=== PATIENT | female | born 1950 | race Caucasian/White ===

== ENCOUNTER 2017-10-15 18:22 | Emergency (ER) | payer OTHER ==
[2017-10-15 19:15] VITALS: RESP 18
[2017-10-15] MEDS ORDERED: LIDOCAINE 1% INJ 10MG/ML (20 ML MDV) SQ ONE (19:55)
--- NOTE | 2017-10-15 20:33 | ED ---
Skin/Abscess/FB HPI - General Chief complaint: Skin/Abscess/Foreign Body Stated complaint: Abcess on Ear Time Seen by Provider: 10/15/17 19:26 Source: patient Mode of arrival: ambulatory Limitations: no limitations - History of Present Illness Initial comments: 66-year-old female patient presents the emergency department for evaluation of abscess to the left posterior earlobe. Patient states that she did have this drained approximately one week ago and they got a "cottage cheese" like material out of it. Patient states over the last 2 days the area has started to swell again has become red and hot. Patient denies any drainage from the area. She denies any fevers or chills. Patient states that before having it drained a week ago the lesion had been there for a couple of years. Patient denies any recent rash, fever, chills, shortness breath, chest pain, abdominal pain, nausea, vomiting, diarrhea, constipation, back pain, numbness, tingling, dizziness, weakness, hematuria, dysuria, urinary urgency, urinary frequency, headache, visual changes, or any other complaints. - Related Data Previous Rx's Medication Instructions Recorded Sulfamethoxazole/Trimethoprim 1 each PO BID #20 tablet 10/15/17 [Bactrim DS 800-160 mg] Allergies Allergy/AdvReac Type Severity Reaction Status Date / Time naproxen [From Naprosyn] Allergy Nausea & Verified 10/15/17 19:16 Vomiting Review of Systems ROS Statement: Those systems with pertinent positive or pertinent negative responses have been documented in the HPI. ROS Other: All systems not noted in ROS Statement are negative. Past Medical History Past Medical History: No Reported History History of Any Multi-Drug Resistant Organisms: None Reported Past Surgical History: Orthopedic Surgery Past Psychological History: Anxiety Smoking Status: Current every day smoker Past Alcohol Use History: Daily Past Drug Use History: None Reported General Exam Limitations: no limitations General appearance: alert, in no apparent distress, other (This is a well- developed, well-nourished adult female patient in no acute distress. Vital signs upon presentation are temperature 98.5F, pulse 72, respirations 18, blood pressure 154/86, pulse ox 97% on room air.) Eye exam: Present: normal appearance, PERRL, EOMI. Absent: scleral icterus, conjunctival injection, periorbital swelling ENT exam: Present: normal oropharynx, mucous membranes moist, other (Patient has 2 cm abscess to the left posterior ear lobe. Erythematous, hot to touch. No surrounding cellulitis. No involvement of the ear canal, or anterior ear lobe.) . Absent: normal exam Neck exam: Present: normal inspection. Absent: tenderness, meningismus, lymphadenopathy Respiratory exam: Present: normal lung sounds bilaterally. Absent: respiratory distress, wheezes, rales, rhonchi, stridor Cardiovascular Exam: Present: regular rate, normal rhythm, normal heart sounds. Absent: systolic murmur, diastolic murmur, rubs, gallop, clicks GI/Abdominal exam: Present: soft, normal bowel sounds. Absent: distended, tenderness, guarding, rebound, rigid Neurological exam: Present: alert, oriented X3, CN II-XII intact Psychiatric exam: Present: normal affect, normal mood Skin exam: Present: warm, dry, intact, normal color. Absent: rash Course Vital Signs 10/15/17 10/15/17 19:12 20:40 Temperature 98.5 F 98.3 F Pulse Rate 72 70 Respiratory 18 18 Rate Blood Pressure 154/86 146/78 O2 Sat by Pulse 97 98 Oximetry Procedures - Incision & Drainage Consent Obtained: verbal consent Time Out Performed?: Yes Indication: abscess Site: other (Ear - left posterior ear lobe.) Size (cm): 2 Anesthetic Used: lidocaine 1% Amount (mLs): 1 I&D Cleaning Method: Chloroprep Sterile Field Used?: No Needle Aspiration Performed?: Yes (3ml) I&D Drainage Obtained: Pus, Blood Culture Obtained?: Yes Patient Tolerated Procedure: well, no complications Medical Decision Making - Medical Decision Making 66-year-old female patient presented to the emergency department today for evaluation of abscess to the left posterior earlobe. Physical examination did reveal a 2 cm area of abscess with fluctuance. I did perform needle aspiration did withdraw approximately 3 mL of purulent bloody drainage. This was sent for culture. Patient had been taking Keflex for the last several days, I did start Bactrim and recommended she complete the Keflex dosing. She is instructed to follow-up with her primary care physician for recheck in 1-2 days. Return parameters were discussed in detail. She verbalizes understanding and agrees with this plan. Disposition Clinical Impression: Abscess, earlobe Disposition: HOME SELF-CARE Condition: Good Instructions: Abscess Incision and Drainage (ED), Abscess (ED) Additional Instructions: Apply warm compresses to the ear. Take Tylenol motion for pain control. Follow -up for recheck with your primary care physician in 1 to 2 days. Complete antibiotic prescription in full. Return here immediately for any new, worsening , or concerning symptoms. Prescriptions: Sulfamethoxazole/Trimethoprim [Bactrim DS 800-160 mg] 1 each PO BID #20 tablet Is patient prescribed a controlled substance at d/c from ED?: No Referrals: None,Stated [Primary Care Provider] - 1-2 days Time of Disposition: 20:33
[2017-10-15 20:45] VITALS: BP 146/78; PULSE 70; TEMP 98.3
== END 2017-10-15 20:54 | disposition home or self-care (01) ==
LOC: EC 18:22
DX: H60.02 Abscess of left external ear (principal); F17.200 Nicotine dependence, unspecified, uncomplicated; Z88.6 Allergy status to analgesic agent
CPT/HCPCS: 87070; 87205; 99283; 69000; J2001

== ENCOUNTER 2017-11-15 21:03 | Emergency (ER) | payer SELFPAY ==
[2017-11-15 21:23] VITALS: BP 149/87; PULSE 89; RESP 18; TEMP 98.4
[2017-11-15] MEDS ORDERED: methylPREDNISolone SOD SUCCI 125 MG/2 ML VIAL IM ONE (23:04)
[2017-11-15] MEDS ORDERED: FAMOTIDINE 20 MG TAB PO STA (23:04)
--- NOTE | 2017-11-15 23:08 | ED ---
Skin/Abscess/FB HPI - General Chief complaint: Skin/Abscess/Foreign Body Stated complaint: Insect bite/Arm Time Seen by Provider: 11/15/17 22:36 Source: patient Mode of arrival: ambulatory Limitations: no limitations - History of Present Illness Initial comments: 67-year-old female patient presents to the emergency department today for evaluation of insect bite to the left upper arm. Patient states she woke this morning with a swollen, reddened, circular area to the left upper arm. The patient states that the area was very itchy and had burning pain. Patient states that the redness spread down the arm throughout the day today. States that she did take Benadryl earlier but it didn't relieve the symptoms. Patient denies any fevers or chills with this. Denies any difficulty or painful range of motion to the left shoulder or the left elbow. Patient denies any recent shortness breath, chest pain, abdominal pain, nausea, vomiting, diarrhea, constipation, back pain, numbness, tingling, dizziness, weakness, hematuria, dysuria, urinary urgency, urinary frequency, headache, visual changes, or any other complaints. - Related Data Home Medications Medication Instructions Recorded Confirmed Multivit-Min/Iron/Folic/Lutein 1 tab PO DAILY 11/15/17 11/15/17 [Centrum Silver Women Tablet] diphenhydrAMINE [Benadryl] 50 mg PO DAILY PRN 11/15/17 11/15/17 Previous Rx's Medication Instructions Recorded Cephalexin [Keflex] 500 mg PO Q6H #40 cap 11/15/17 Famotidine [Pepcid] 20 mg PO DAILY #3 tablet 11/15/17 predniSONE 50 mg PO DAILY #3 tablet 11/15/17 Allergies Allergy/AdvReac Type Severity Reaction Status Date / Time bee pollen Allergy Rash/Hives Verified 11/15/17 22:46 codeine Allergy Nausea & Verified 11/15/17 22:46 Vomiting naproxen [From Naprosyn] Allergy Nausea & Verified 11/15/17 22:46 Vomiting Review of Systems ROS Statement: Those systems with pertinent positive or pertinent negative responses have been documented in the HPI. ROS Other: All systems not noted in ROS Statement are negative. Past Medical History Past Medical History: No Reported History History of Any Multi-Drug Resistant Organisms: None Reported Past Surgical History: Orthopedic Surgery Past Psychological History: Anxiety Smoking Status: Current every day smoker Past Alcohol Use History: Daily Past Drug Use History: None Reported General Exam Limitations: no limitations General appearance: alert, in no apparent distress, other (Is a well-developed, well-nourished adult female patient in no acute distress. Vital signs upon presentation are temperature 98.4F, pulse 89, respirations 18, blood pressure 149/87, pulse ox 100% on room air.) Eye exam: Present: normal appearance, PERRL, EOMI. Absent: scleral icterus, conjunctival injection, periorbital swelling ENT exam: Present: normal exam, normal oropharynx, mucous membranes moist Respiratory exam: Present: normal lung sounds bilaterally. Absent: respiratory distress, wheezes, rales, rhonchi, stridor Cardiovascular Exam: Present: regular rate, normal rhythm, normal heart sounds. Absent: systolic murmur, diastolic murmur, rubs, gallop, clicks Extremities exam: Present: full ROM, other (Patient has erythematous wheal noted to the left upper arm, there is surrounding swelling and erythema. No evidence of abscess. ). Absent: normal inspection, tenderness Neurological exam: Present: alert, oriented X3, CN II-XII intact Psychiatric exam: Present: normal affect, normal mood Skin exam: Present: warm, dry, intact, normal color. Absent: rash Course Vital Signs 11/15/17 21:21 Temperature 98.4 F Pulse Rate 89 Respiratory 18 Rate Blood Pressure 149/87 O2 Sat by Pulse 100 Oximetry Medical Decision Making - Medical Decision Making 67 year-old female patient presents to the emergency department today for evaluation of possible bug bite to the left upper arm. There is surrounding erythema and swelling raises concern for cellulitis. We will treat patient for ALLERGIC reaction with prednisone and Pepcid as well as with Keflex for possible cellulitis. Patient is currently afebrile so we did not do blood work at this time. Patient is instructed that if symptoms worsen or she develops any new symptoms she is to return immediately. She verbalizes understanding and agrees with this plan. Disposition Clinical Impression: Insect bite, Cellulitis Disposition: HOME SELF-CARE Condition: Good Instructions: Cellulitis (ED), Insect Bite or Sting (ED) Additional Instructions: Complete prescriptions and full. Follow-up with your primary care physician for recheck of the area in 1-2 days. Return here immediately for any new, worsening, or concerning symptoms. Prescriptions: Cephalexin [Keflex] 500 mg PO Q6H #40 cap Famotidine [Pepcid] 20 mg PO DAILY #3 tablet predniSONE 50 mg PO DAILY #3 tablet Is patient prescribed a controlled substance at d/c from ED?: No Referrals: Aman Morelos DO [Primary Care Provider] - 1-2 days Time of Disposition: 23:21
[2017-11-15] MEDS ORDERED: CEPHALEXIN 500MG STARTER PACK 4 CAP BTL PO STA (23:19)
== END 2017-11-15 23:41 | disposition home or self-care (01) ==
LOC: EC 21:03
DX: L03.114 Cellulitis of left upper limb (principal); F17.200 Nicotine dependence, unspecified, uncomplicated; Z88.5 Allergy status to narcotic agent; Z88.6 Allergy status to analgesic agent; Z91.018 Allergy to other foods; W57.XXXA Bitten or stung by nonvenomous insect and other nonvenomous arthropods, initial encounter
CPT/HCPCS: 96372; 99281; J2930

== ENCOUNTER 2020-01-18 10:29 | Emergency (ER) | payer MEDICARE ==
[2020-01-18] MEDS ORDERED: hydrALAZINE HCL 20 MG/ML 1 ML VIAL IVP STA (10:43)
--- NOTE | 2020-01-18 10:45 | ED ---
General Adult HPI - General Chief complaint: Recheck/Abnormal Lab/Rx Stated complaint: abn labs Time Seen by Provider: 01/18/20 10:35 Source: patient, RN notes reviewed, old records reviewed Mode of arrival: ambulatory Limitations: no limitations - History of Present Illness Initial comments: This is a 69-year-old male who presents emergency department with past medical history significant for smoking. Patient states yesterday and this morning he woke up with a frontal headache patient thought he had a sinus infection so he went to urgent care however when he got to urgent care his blood pressure was elevated and they sent him to the emergency department. Patient denies any numbness weakness. Patient denies lightheadedness or dizziness patient denies any near syncopal episode. Patient denies any chest pain palpitations difficulty breathing shortness breath per patient denies any fever chills per patient states tapping on his forehead does not seem to increase his headache. Patient states he will hasn't been that congested. Patient denies any abdominal pain patient denies nausea vomiting diarrhea. - Related Data Home Medications Medication Instructions Recorded Confirmed Multivit-Min/Iron/Folic/Lutein 1 tab PO DAILY 11/15/17 01/18/20 [Centrum Silver Women Tablet] Cholecalciferol [Vitamin D3 (25 1,000 unit PO DAILY 01/18/20 01/18/20 Mcg = 1000 Iu)] Loratadine [Claritin] 10 mg PO DAILY 01/18/20 01/18/20 Naproxen Sodium [Aleve] 220 mg PO DAILY PRN 01/18/20 01/18/20 guaiFENesin SYRUP 100MG/5ML 2.5 ml PO Q12H PRN 01/18/20 01/18/20 [Robitussin] Previous Rx's Medication Instructions Recorded amLODIPine [Norvasc] 5 mg PO DAILY #10 tab 01/18/20 Allergies Allergy/AdvReac Type Severity Reaction Status Date / Time bee pollen Allergy Rash/Hives Verified 01/18/20 11:05 codeine Allergy Nausea & Verified 01/18/20 11:05 Vomiting naproxen [From Naprosyn] Allergy Nausea & Verified 01/18/20 11:05 Vomiting Review of Systems ROS Statement: Those systems with pertinent positive or pertinent negative responses have been documented in the HPI. ROS Other: All systems not noted in ROS Statement are negative. Past Medical History Past Medical History: No Reported History History of Any Multi-Drug Resistant Organisms: None Reported Past Surgical History: Orthopedic Surgery Past Psychological History: Anxiety Smoking Status: Current every day smoker Past Alcohol Use History: Daily Past Drug Use History: None Reported General Exam - General Exam Comments Initial Comments: GENERAL: Patient is well-developed and well-nourished. Patient is nontoxic and well-hydrated and is in mild distress. ENT: Neck is soft and supple. No significant lymphadenopathy is noted. Oropharynx is clear. Moist mucous membranes. Neck has full range of motion without eliciting any pain. EYES: The sclera were anicteric and conjunctiva were pink and moist. Extraocular movements were intact and pupils were equal round and reactive to light. Eyelids were unremarkable. PULMONARY: Unlabored respirations. Good breath sounds bilaterally. No audible rales rhonchi or wheezing was noted. CARDIOVASCULAR: There is a regular rate and rhythm without any murmurs gallops or rubs. ABDOMEN: Soft and nontender with normal bowel sounds. SKIN: Skin is clear with no lesions or rashes and otherwise unremarkable. NEUROLOGIC: Patient is alert and oriented x3. Cranial nerves II through XII are grossly intact. Motor and sensory are also intact. Normal speech, volume and content. Symmetrical smile. MUSCULOSKELETAL: Normal extremities with adequate strength and full range of motion. LYMPHATICS: No significant lymphadenopathy is noted PSYCHIATRIC: Normal psychiatric evaluation. Limitations: no limitations Course Vital Signs 01/18/20 01/18/20 10:35 12:03 Temperature 97.7 F Pulse Rate 77 66 Respiratory 18 18 Rate Blood Pressure 189/98 153/71 O2 Sat by Pulse 99 97 Oximetry Medical Decision Making - Medical Decision Making EKG shows sinus rhythm with occasional PVC at 69 bpm IL interval 160 QRS 102 QT interval 440 QTC is 471. Patient's EKG shows no ST segment elevation or depression Patient received hydralazine the emergency department. Patient's pressure came down nicely. I went back in and reevaluated the patient he no longer had the pressure in the front of his forehead. - Lab Data Result diagrams: 01/18/20 11:13 01/18/20 11:13 Lab Results 01/18/20 01/18/20 01/18/20 Range/Units 11:13 11:13 11:13 WBC 5.8 (3.8-10.6) k/uL RBC 4.71 (4.30-5.90) m/uL Hgb 15.6 (13.0-17.5) gm/dL Hct 47.5 (39.0-53.0) % MCV 100.8 H (80.0-100.0) fL MCH 33.1 (25.0-35.0) pg MCHC 32.8 (31.0-37.0) g/dL RDW 12.3 (11.5-15.5) % Plt Count 197 (150-450) k/uL Neutrophils % 77 % Lymphocytes % 16 % Monocytes % 5 % Eosinophils % 1 % Basophils % 0 % Neutrophils # 4.5 (1.3-7.7) k/uL Lymphocytes # 0.9 L (1.0-4.8) k/uL Monocytes # 0.3 (0-1.0) k/uL Eosinophils # 0.1 (0-0.7) k/uL Basophils # 0.0 (0-0.2) k/uL PT 9.8 (9.0-12.0) sec INR 0.9 (<1.2) APTT 23.3 (22.0-30.0) sec Sodium 140 (137-145) mmol/L Potassium 4.1 (3.5-5.1) mmol/L Chloride 107 (98-107) mmol/L Carbon Dioxide 29 (22-30) mmol/L Anion Gap 4 mmol/L BUN 9 (9-20) mg/dL Creatinine 0.71 (0.66-1.25) mg/dL Est GFR (CKD-EPI)AfAm >90 (>60 ml/min/1.73 sqM) Est GFR (CKD-EPI)NonAf >90 (>60 ml/min/1.73 sqM) Glucose 100 H (74-99) mg/dL Calcium 9.6 (8.4-10.2) mg/dL Magnesium 2.0 (1.6-2.3) mg/dL Total Bilirubin 0.9 (0.2-1.3) mg/dL AST 25 (17-59) U/L ALT 12 (4-49) U/L Alkaline Phosphatase 75 (38-126) U/L Troponin I (0.000-0.034) ng/mL Total Protein 7.7 (6.3-8.2) g/dL Albumin 4.6 (3.5-5.0) g/dL 01/18/20 Range/Units 11:13 WBC (3.8-10.6) k/uL RBC (4.30-5.90) m/uL Hgb (13.0-17.5) gm/dL Hct (39.0-53.0) % MCV (80.0-100.0) fL MCH (25.0-35.0) pg MCHC (31.0-37.0) g/dL RDW (11.5-15.5) % Plt Count (150-450) k/uL Neutrophils % % Lymphocytes % % Monocytes % % Eosinophils % % Basophils % % Neutrophils # (1.3-7.7) k/uL Lymphocytes # (1.0-4.8) k/uL Monocytes # (0-1.0) k/uL Eosinophils # (0-0.7) k/uL Basophils # (0-0.2) k/uL PT (9.0-12.0) sec INR (<1.2) APTT (22.0-30.0) sec Sodium (137-145) mmol/L Potassium (3.5-5.1) mmol/L Chloride (98-107) mmol/L Carbon Dioxide (22-30) mmol/L Anion Gap mmol/L BUN (9-20) mg/dL Creatinine (0.66-1.25) mg/dL Est GFR (CKD-EPI)AfAm (>60 ml/min/1.73 sqM) Est GFR (CKD-EPI)NonAf (>60 ml/min/1.73 sqM) Glucose (74-99) mg/dL Calcium (8.4-10.2) mg/dL Magnesium (1.6-2.3) mg/dL Total Bilirubin (0.2-1.3) mg/dL AST (17-59) U/L ALT (4-49) U/L Alkaline Phosphatase (38-126) U/L Troponin I <0.012 (0.000-0.034) ng/mL Total Protein (6.3-8.2) g/dL Albumin (3.5-5.0) g/dL Disposition Clinical Impression: Hypertensive urgency Disposition: HOME SELF-CARE Condition: Good Instructions (If sedation given, give patient instructions): Hypertension (ED) Prescriptions: amLODIPine [Norvasc] 5 mg PO DAILY #10 tab Is patient prescribed a controlled substance at d/c from ED?: No Referrals: None,Stated [Primary Care Provider] - 1-2 days Time of Disposition: 12:42
[2020-01-18 11:41] LABS: Basophils % (A) 0 %; Eosinophils # (A) 0.1 k/uL (0-0.7); Eosinophils % (A) 1 %; HCT 47.5 % (39.0-53.0); HGB 15.6 gm/dL (13.0-17.5); Lymphocytes # (A) 0.9 k/uL (1.0-4.8); Lymphocytes % (A) 16 %; MCH 33.1 pg (25.0-35.0); MCHC 32.8 g/dL (31.0-37.0); MCV 100.8 fL (80.0-100.0); Mean Platelet Volume 6.8; Monocytes # (A) 0.3 k/uL (0-1.0); Monocytes % (A) 5 %; Neutrophils # (A) 4.5 k/uL (1.3-7.7); Neutrophils % (A) 77 %; Platelet Count 197 k/uL (150-450); RBC 4.71 m/uL (4.30-5.90); RDW 12.3 % (11.5-15.5); WBC 5.8 k/uL (3.8-10.6)
--- NOTE | 2020-01-18 11:41 | XR ---
EXAMINATION TYPE: XR chest 2V DATE OF EXAM: 01/18/2020 COMPARISON: NONE HISTORY: Shortness of breath TECHNIQUE: Frontal and lateral views of the chest are obtained. FINDINGS: Scattered senescent parenchymal changes noted. Hyperinflation compatible with COPD. No evidence for infiltrate. No evidence for atelectasis. Heart size is stable. Mediastinal structures are stable and grossly unremarkable. No evidence for hilar prominence. Degenerative changes dorsal spine. IMPRESSION: 1. No evidence for acute pulmonary disease.
[2020-01-18 11:51] LABS: ALT 12 U/L (4-49); AST 25 U/L (17-59); African American GFR (CKD) >90 (>60 ml/min/1.73 sqM); Albumin 4.6 g/dL (3.5-5.0); Alkaline Phosphatase 75 U/L (38-126); Anion Gap 4 mmol/L; Blood Urea Nitrogen 9 mg/dL (9-20); Calcium 9.6 mg/dL (8.4-10.2); Carbon Dioxide 29 mmol/L (22-30); Chloride 107 mmol/L (98-107); Glucose 100 mg/dL (74-99); Non-African American GFR(CKD) >90 (>60 ml/min/1.73 sqM); Potassium 4.1 mmol/L (3.5-5.1); Sodium 140 mmol/L (137-145); Total Bilirubin 0.9 mg/dL (0.2-1.3); Total Protein 7.7 g/dL (6.3-8.2)
[2020-01-18 11:52] LABS: INR 0.9 (<1.2); Partial Thromboplastin Time 23.3 sec (22.0-30.0); Prothrombin Time 9.8 sec (9.0-12.0)
--- NOTE | 2020-01-18 11:53 | CT ---
EXAMINATION TYPE: CT brain wo con DATE OF EXAM: 01/18/2020 COMPARISON: None HISTORY: high blood pressure, headache, dizziness CT DLP: 1099.[address] of the brain was performed. The ventricles, basal cisterns and sulci overlying the cerebral convexities demonstrate mild enlargem ent. There is no evidence for intracranial hemorrhage or sulcal effacement. There is decreased attenuation about the periventricular white matter and deep white matter of both c erebral hemispheres, compatible with chronic small vessel ischemia. Differential diagnosis does inclu de demyelination. No mass effects are seen.No midline shift. Osseous calvarium is intact. If symptoms persist consider MRI. IMPRESSION: 1. Age related atrophic and chronic small vessel ischemic change without acute intracranial process s een at this time.
[2020-01-18 13:12] VITALS: BP 158/87; PULSE 77; RESP 20; TEMP 98.3
== END 2020-01-18 13:12 | disposition home or self-care (01) ==
LOC: EDSEX → EC 10:29 → EDSEX 10:29 → EC 13:12
DX: I16.0 Hypertensive urgency (principal); F17.200 Nicotine dependence, unspecified, uncomplicated; Z88.5 Allergy status to narcotic agent; Z88.8 Allergy status to other drugs, medicaments and biological substances; Z91.030 Bee allergy status
CPT/HCPCS: 99285 ×2; 96374 ×2; 36415; 93005; 80053; 83735; 84484; 85025; 85610; 85730; 71046; 70450; J0360

== ENCOUNTER 2021-10-27 22:13 | Emergency (ER) | payer MEDICARE ==
[2021-10-27 23:43] VITALS: BP 159/92; PULSE 73; RESP 16; TEMP 97.9
[2021-10-28 00:12] LABS: Basophils # (A) 0.1 k/uL (0-0.2); Basophils % (A) 1 %; Eosinophils # (A) 0.1 k/uL (0-0.7); Eosinophils % (A) 2 %; HCT 44.8 % (34.0-46.0); HGB 15.6 gm/dL (11.4-16.0); Lymphocytes # (A) 2.2 k/uL (1.0-4.8); Lymphocytes % (A) 29 %; MCH 36.2 pg (25.0-35.0); MCHC 34.9 g/dL (31.0-37.0); MCV 103.8 fL (80.0-100.0); Macrocytosis Slight; Mean Platelet Volume 6.8; Monocytes # (A) 0.3 k/uL (0-1.0); Monocytes % (A) 4 %; Neutrophils # (A) 4.6 k/uL (1.3-7.7); Neutrophils % (A) 62 %; Platelet Count 250 k/uL (150-450); RBC 4.32 m/uL (3.80-5.40); RDW 12.1 % (11.5-15.5); WBC 7.5 k/uL (3.8-10.6)
--- NOTE | 2021-10-28 00:26 | XR ---
EXAMINATION TYPE: XR KUB DATE OF EXAM: 10/28/2021 COMPARISON: NONE HISTORY: Pain TECHNIQUE: 2 view upright FINDINGS: There is no sign of intestinal obstruction or pneumoperitoneum. Fecal pattern is normal. Faiza ng bases are clear. There are no calcifications over the kidneys. No evidence of a mass IMPRESSION: Nonacute abdomen.
[2021-10-28 00:31] LABS: ALT 10 U/L (4-34); AST 21 U/L (14-36); African American GFR (CKD) >90 (>60 ml/min/1.73 sqM); Albumin 4.9 g/dL (3.5-5.0); Alkaline Phosphatase 77 U/L (38-126); Amylase 79 U/L (30-110); Anion Gap 9 mmol/L; Blood Urea Nitrogen 10 mg/dL (7-17); Calcium 9.7 mg/dL (8.4-10.2); Carbon Dioxide 24 mmol/L (22-30); Chloride 104 mmol/L (98-107); Glucose 98 mg/dL (74-99); Lipase 200 U/L (23-300); Non-African American GFR(CKD) 87 (>60 ml/min/1.73 sqM); Potassium 4.7 mmol/L (3.5-5.1); Sodium 137 mmol/L (137-145); Total Bilirubin 0.4 mg/dL (0.2-1.3); Total Protein 8.1 g/dL (6.3-8.2)
[2021-10-28 01:44] LABS: Appearance,Urine Clear (Clear); Bacteria,Urine Rare /hpf; Bilirubin,Urine Negative (Negative); Blood,Urine Negative (Negative); Color,Urine Colorless; Glucose,Urine (UA) Negative (Negative); Ketones,Urine Negative (Negative); Leukocyte Esterase,Urine Small (Negative); Mucus,Urine Rare /hpf; Nitrite,Urine Negative (Negative); PH, Urine 5.5 (5.0-8.0); Protein,Urine Negative (Negative); Specific Gravity,Urine 1.003 (1.001-1.035); Squamous Epithelial Cell,Urine 1 /hpf (0-4); Urobilinogen,Urine <2.0 mg/dL (<2.0); WBC,Urine 3 /hpf (0-5)
[2021-10-28] MEDS ORDERED: KETOROLAC 15 MG/ML 1 ML VIAL IVP STA (03:00)
--- NOTE | 2021-10-28 03:24 | CT ---
EXAM: CT Abdomen and Pelvis Without Intravenous Contrast CLINICAL HISTORY: ITS.REASON CT Reason: acute abdominal pain, nonlocalized TECHNIQUE: Axial computed tomography images of the abdomen and pelvis without intravenous contrast. CTDI is 6.4 mGy and DLP is 347.3 mGy-cm. This CT exam was performed using one or more of the following dose reduction techniques: automated exposure control, adjustment of the mA and/or kV according to patient size, and/or use of iterative reconstruction technique. COMPARISON: KUB from October 28, 2021. FINDINGS: Lung bases: Unremarkable. No mass. No consolidation. ABDOMEN: Liver: Unremarkable. Gallbladder and bile ducts: Unremarkable. No calcified stones. No ductal dilation. Pancreas: Unremarkable. No ductal dilation. Spleen: Unremarkable. No splenomegaly. Adrenals: Unremarkable. No mass. Kidneys and ureters: The kidneys appear within normal limits. No hydronephrosis or ureterolithiasis is identified. The urinary bladder is partially distended but unremarkable. Stomach and bowel: Unremarkable. No obstruction. No mucosal thickening. PELVIS: Appendix: The appendix is normal. Bowel loops are nondilated. No pneumoperitoneum, for fluid, or acute inflammatory changes are seen involving the bowel. Bladder: Unremarkable. No stones. Reproductive: Unremarkable as visualized. ABDOMEN and PELVIS: Intraperitoneal space: The uterus has been removed. No free fluid is seen in the pelvis. Bones/joints: Mild to moderate degenerative changes throughout the spine including the chronic appearing 50% superior endplate compression fracture of L3. No acute fracture or subluxation is seen. Soft tissues: Unremarkable. Vasculature: The abdominal aorta is mildly calcified but nondilated. Lymph nodes: Unremarkable. No enlarged lymph nodes. IMPRESSION: 1. The kidneys appear within normal limits. No hydronephrosis or ureterolithiasis is identified. The urinary bladder is partially distended but unremarkable. 2. The appendix is normal. Bowel loops are nondilated. No pneumoperitoneum, for fluid, or acute inflammatory changes are seen involving the bowel.
--- NOTE | 2021-10-28 03:59 | ED ---
Abdominal Pain HPI - General Chief Complaint: Abdominal Pain Stated Complaint: Abd pain Time Seen by Provider: 10/28/21 00:47 Source: patient Mode of arrival: ambulatory - History of Present Illness MD Complaint: abdominal pain -: hour(s) Location: LLQ, RLQ, suprapubic Radiation: none Severity: severe Quality: fullness, dull Consistency: constant Improves With: nothing Worsens With: nothing Associated Symptoms: nausea - Related Data Home Medications Medication Instructions Recorded Confirmed Multivit-Min/Iron/Folic/Lutein 1 tab PO DAILY 11/15/17 01/18/20 [Centrum Silver Women Tablet] Cholecalciferol [Vitamin D3 (25 1,000 unit PO DAILY 01/18/20 01/18/20 Mcg = 1000 Iu)] Loratadine [Claritin] 10 mg PO DAILY 01/18/20 01/18/20 Naproxen Sodium [Aleve] 220 mg PO DAILY PRN 01/18/20 01/18/20 guaiFENesin SYRUP 100MG/5ML 2.5 ml PO Q12H PRN 01/18/20 01/18/20 [Robitussin] Previous Rx's Medication Instructions Recorded amLODIPine [Norvasc] 5 mg PO DAILY #10 tab 01/18/20 Dicyclomine [Bentyl] 20 mg PO QID #15 tablet 10/28/21 Famotidine [Pepcid] 20 mg PO BID #14 tablet 10/28/21 Allergies Allergy/AdvReac Type Severity Reaction Status Date / Time bee pollen Allergy Rash/Hives Verified 10/27/21 23:44 codeine Allergy Nausea & Verified 10/27/21 23:44 Vomiting naproxen [From Naprosyn] Allergy Nausea & Verified 10/27/21 23:44 Vomiting Review of Systems ROS Statement: Those systems with pertinent positive or pertinent negative responses have been documented in the HPI. ROS Other: All systems not noted in ROS Statement are negative. Constitutional: Denies: fever, chills Respiratory: Denies: cough, dyspnea Cardiovascular: Denies: chest pain, palpitations, edema Gastrointestinal: Reports: abdominal pain, nausea. Denies: vomiting, diarrhea, constipation, melena, hematochezia Genitourinary: Denies: dysuria, hematuria Musculoskeletal: Denies: back pain Skin: Denies: rash Neurological: Denies: headache, weakness, numbness Past Medical History Past Medical History: Hyperlipidemia, Hypertension History of Any Multi-Drug Resistant Organisms: None Reported Past Surgical History: Orthopedic Surgery Past Psychological History: Anxiety Smoking Status: Current every day smoker Past Alcohol Use History: Daily Past Drug Use History: None Reported General Exam General appearance: alert, in no apparent distress Head exam: Present: atraumatic, normocephalic Eye exam: Present: normal appearance. Absent: scleral icterus, conjunctival injection Neck exam: Present: normal inspection Respiratory exam: Present: normal lung sounds bilaterally. Absent: respiratory distress, wheezes, rales, rhonchi, stridor Cardiovascular Exam: Present: regular rate, normal rhythm, normal heart sounds. Absent: systolic murmur, diastolic murmur, rubs, gallop GI/Abdominal exam: Present: soft, tenderness (Is mild lower abdominal tenderness without rebound or guarding). Absent: distended, guarding, rebound, rigid, mass Extremities exam: Present: normal inspection, normal capillary refill. Absent: pedal edema, calf tenderness Back exam: Present: normal inspection. Absent: CVA tenderness (R), CVA tenderness (L) Neurological exam: Present: alert Skin exam: Present: warm, dry, intact, normal color. Absent: rash Course Vital Signs 10/27/21 23:36 Temperature 97.9 F Pulse Rate 73 Respiratory 16 Rate Blood Pressure 159/92 O2 Sat by Pulse 99 Oximetry Medical Decision Making - Lab Data Result diagrams: 10/27/21 00:05 10/27/21 00:05 Lab Results 10/27/21 10/27/21 10/28/21 Range/Units 00:05 00:05 01:19 WBC 7.5 (3.8-10.6) k/uL RBC 4.32 (3.80-5.40) m/uL Hgb 15.6 (11.4-16.0) gm/dL Hct 44.8 (34.0-46.0) % MCV 103.8 H (80.0-100.0) fL MCH 36.2 H (25.0-35.0) pg MCHC 34.9 (31.0-37.0) g/dL RDW 12.1 (11.5-15.5) % Plt Count 250 (150-450) k/uL MPV 6.8 Neutrophils % 62 % Lymphocytes % 29 % Monocytes % 4 % Eosinophils % 2 % Basophils % 1 % Neutrophils # 4.6 (1.3-7.7) k/uL Lymphocytes # 2.2 (1.0-4.8) k/uL Monocytes # 0.3 (0-1.0) k/uL Eosinophils # 0.1 (0-0.7) k/uL Basophils # 0.1 (0-0.2) k/uL Macrocytosis Slight Sodium 137 (137-145) mmol/L Potassium 4.7 (3.5-5.1) mmol/L Chloride 104 (98-107) mmol/L Carbon Dioxide 24 (22-30) mmol/L Anion Gap 9 mmol/L BUN 10 (7-17) mg/dL Creatinine 0.72 (0.52-1.04) mg/dL Est GFR (CKD-EPI)AfAm >90 (>60 ml/min/1.73 sqM) Est GFR (CKD-EPI)NonAf 87 (>60 ml/min/1.73 sqM) Glucose 98 (74-99) mg/dL Calcium 9.7 (8.4-10.2) mg/dL Total Bilirubin 0.4 (0.2-1.3) mg/dL AST 21 (14-36) U/L ALT 10 (4-34) U/L Alkaline Phosphatase 77 (38-126) U/L Total Protein 8.1 (6.3-8.2) g/dL Albumin 4.9 (3.5-5.0) g/dL Amylase 79 (30-110) U/L Lipase 200 (23-300) U/L Urine Color Colorless Urine Appearance Clear (Clear) Urine pH 5.5 (5.0-8.0) Ur Specific [place] 1.003 (1.001-1.035) Urine Protein Negative (Negative) Urine Glucose (UA) Negative (Negative) Urine Ketones Negative (Negative) Urine Blood Negative (Negative) Urine Nitrite Negative (Negative) Urine Bilirubin Negative (Negative) Urine Urobilinogen <2.0 (<2.0) mg/dL Ur Leukocyte Esterase Small H (Negative) Urine WBC 3 (0-5) /hpf Ur Squamous Epith Cells 1 (0-4) /hpf Urine Bacteria Rare H (None) /hpf Urine Mucus Rare H (None) /hpf Disposition Clinical Impression: Abdominal pain Disposition: HOME SELF-CARE Condition: Good Instructions (If sedation given, give patient instructions): Abdominal Pain (ED) Prescriptions: Dicyclomine [Bentyl] 20 mg PO QID #15 tablet Famotidine [Pepcid] 20 mg PO BID #14 tablet Is patient prescribed a controlled substance at d/c from ED?: No Referrals: Sonam Lynn MD [Primary Care Provider] - 1-2 days
== END 2021-10-28 04:25 | disposition home or self-care (01) ==
LOC: EC 22:13 → SUPCPDRO 22:13 → EC 10-28 04:25
DX: R10.30 Lower abdominal pain, unspecified (principal); I10 Essential (primary) hypertension; E78.5 Hyperlipidemia, unspecified; F41.9 Anxiety disorder, unspecified; F17.200 Nicotine dependence, unspecified, uncomplicated; Z91.030 Bee allergy status; Z88.5 Allergy status to narcotic agent; Z88.6 Allergy status to analgesic agent; Z79.899 Other long term (current) drug therapy
CPT/HCPCS: 36415; 80053; 82150; 83690; 85025; 81001; 74018; 74176; 99284; 96374; J1885

== ENCOUNTER 2023-07-12 20:17 | Emergency (ER) | payer MEDICARE ==
[2023-07-12 20:47] LABS: Basophils % (A) 0 %; Eosinophils # (A) 0.1 k/uL (0-0.7); Eosinophils % (A) 1 %; HCT 43.3 % (34.0-46.0); HGB 14.8 gm/dL (11.4-16.0); Lymphocytes % (A) 19 %; MCH 34.9 pg (25.0-35.0); MCV 102.6 fL (80.0-100.0); Mean Platelet Volume 7.3; Monocytes # (A) 0.3 k/uL (0-1.0); Monocytes % (A) 3 %; Neutrophils # (A) 7.8 k/uL (1.3-7.7); Neutrophils % (A) 75 %; Platelet Count 224 k/uL (150-450); RBC 4.22 m/uL (3.80-5.40); RDW 11.7 % (11.5-15.5); WBC 10.4 k/uL (3.8-10.6)
[2023-07-12 20:50] VITALS: RESP 18
[2023-07-12 20:58] LABS: ALT 20 U/L (4-34); AST 27 U/L (14-36); African American GFR (CKD) >90 (>60 ml/min/1.73 sqM); Albumin 4.9 g/dL (3.5-5.0); Alkaline Phosphatase 80 U/L (38-126); Anion Gap 11 mmol/L; Blood Urea Nitrogen 10 mg/dL (7-17); Calcium 9.2 mg/dL (8.4-10.2); Carbon Dioxide 22 mmol/L (22-30); Chloride 98 mmol/L (98-107); Glucose 103 mg/dL (74-99); Non-African American GFR(CKD) >90 (>60 ml/min/1.73 sqM); Potassium 4.6 mmol/L (3.5-5.1); Sodium 131 mmol/L (137-145); Total Bilirubin 0.6 mg/dL (0.2-1.3); Total Protein 7.9 g/dL (6.3-8.2)
--- NOTE | 2023-07-12 21:09 | ED ---
General Adult HPI - General Source: patient, family, RN notes reviewed Mode of arrival: wheelchair Limitations: no limitations <Brandy Barton - Last Filed: 07/12/23 21:04> <Musa Parks - Last Filed: 07/12/23 21:30> - General Chief complaint: Syncope Stated complaint: Fall-Head injury - History of Present Illness Initial comments: Quick note: 72-year-old female presents to the emergency department for evaluation of head injury from a fall. Patient states that she was using the bathroom earlier today. She stood up from the toilet and fell forward hitting her head on the toilet grate. She states that she did not lose consciousness. She is not on blood thinners. She admits to consuming 4-5 alcoholic beverages today. She states that she attempted to get up from her chair following her fall and her legs gave out. (Brandy Barton) Dictation was produced using [employer] dictation software. please excuse any grammatical, word or spelling errors. Chief Complaint: 85-year-old female sent in from primary care physician's office for bradycardia History of Present Illness: Patient is 85-year-old female she presents to the emergency department for after being seen by medical provider at primary care physician's office. She was seen there for approximately 2 months of weakness and exertional dyspnea. She had an EKG performed there was found to be bradycardic in the 50s. She was told that she should come to the emergency room. Patient states that she feels like her symptoms have been ongoing for the last 2 months after having been resumed on metoprolol by her friction saw operator. She does have history of atrial fibrillation. She reports that she is on all the medications for A-fib which is currently managed by her friction saw operator. The ROS documented in this emergency department record has been reviewed and confirmed by me. Those systems with pertinent positive or negative responses have been documented in the HPI. All other systems are other negative and/or noncontributory. (Musa Parks) - Related Data Home Medications Medication Instructions Recorded Confirmed Multivit-Min/Iron/Folic/Lutein 1 tab PO DAILY 11/15/17 01/18/20 [Centrum Silver Women Tablet] Cholecalciferol [Vitamin D3 (25 1,000 unit PO DAILY 01/18/20 01/18/20 Mcg = 1000 Iu)] Loratadine [Claritin] 10 mg PO DAILY 01/18/20 01/18/20 Naproxen Sodium [Aleve] 220 mg PO DAILY PRN 01/18/20 01/18/20 guaiFENesin SYRUP 100MG/5ML 2.5 ml PO Q12H PRN 01/18/20 01/18/20 [Robitussin] Previous Rx's Medication Instructions Recorded amLODIPine [Norvasc] 5 mg PO DAILY #10 tab 01/18/20 Dicyclomine [Bentyl] 20 mg PO QID #15 tablet 10/28/21 Famotidine [Pepcid] 20 mg PO BID #14 tablet 10/28/21 Allergies Allergy/AdvReac Type Severity Reaction Status Date / Time bee pollen Allergy Rash/Hives Verified 10/27/21 23:44 codeine Allergy Nausea & Verified 10/27/21 23:44 Vomiting naproxen [From Naprosyn] Allergy Nausea & Verified 10/27/21 23:44 Vomiting Review of Systems ROS Other: All systems not noted in ROS Statement are negative. <Brandy Barton - Last Filed: 07/12/23 21:04> ROS Other: All systems not noted in ROS Statement are negative. <Musa Parks - Last Filed: 07/12/23 21:30> ROS Statement: Those systems with pertinent positive or pertinent negative responses have been documented in the HPI. Past Medical History Past Medical History: Hyperlipidemia, Hypertension History of Any Multi-Drug Resistant Organisms: None Reported Past Surgical History: Orthopedic Surgery Past Psychological History: Anxiety Smoking Status: Current every day smoker Past Alcohol Use History: Daily Past Drug Use History: None Reported <Brandy Barton - Last Filed: 07/12/23 21:04> General Exam Limitations: no limitations <Brandy Barton - Last Filed: 07/12/23 21:04> <Musa Parks - Last Filed: 07/12/23 21:30> - General Exam Comments Initial Comments: Visual Physical Exam Vital signs reviewed General: Well-appearing, nontoxic, no acute distress. Head: Normocephalic, atraumatic Eyes: PERRLA, EOMI ENT: Airway patent Chest: Nonlabored breathing Skin: No visual rash, normal skin tone Neuro: Alert and oriented 3 Musculoskeletal: No gross abnormalities (Brandy Barton) PHYSICAL EXAM: General Impression: Alert and oriented x3, not in acute distress HEENT: Normocephalic atraumatic, extra-ocular movements intact, pupils equal and reactive to light bilaterally, mucous membranes moist. Cardiovascular: Heart regular rate and rhythm Chest: Able to complete full sentences, no retractions, no tachypnea Abdomen: abdomen soft, non-tender, non-distended, no organomegaly Musculoskeletal: Pulses present and equal in all extremities, no peripheral edema Motor: no focal deficits noted Neurological: CN II-XII grossly intact, no focal motor or sensory deficits noted Skin: Intact with no visualized rashes Psych: Normal affect and mood (Musa Parks) Course Vital Signs 07/12/23 20:18 Temperature 97.5 F L Pulse Rate 57 L Respiratory 18 Rate Blood Pressure 133/76 O2 Sat by Pulse 98 Oximetry EKG Findings - EKG Comments: EKG Findings:: My EKG interpretation: Ventricular rate 60, sinus rhythm, NE interval 256, cures 92, QTc 419. No NE prolongation, no QTC prolongation, no ST or T-wave changes noted. Overall, this EKG is unremarkable <Musa Parks - Last Filed: 07/12/23 21:30> Medical Decision Making - Lab Data Result diagrams: 07/12/23 20:35 07/12/23 20:35 <Brandy Barton - Last Filed: 07/12/23 21:04> - Lab Data Result diagrams: 07/12/23 20:35 07/12/23 20:35 <Musa Parks - Last Filed: 07/12/23 21:30> - Medical Decision Making Quick note preformed and electronically by Brandy Barton PA-C (Brandy Barton) Was pt. sent in by a medical professional or institution ([facility], COMMERCIAL TRAILER TRUCK [employer]IVER, urgent care, hospital, or [facility]...) When possible be specific @ -Sent in from primary care physician's office Did you speak to anyone other than the patient for history (EMS, parent, family, police, friend...)? What history was obtained from this source @ -No Did you review nursing and triage notes (agree or disagree)? Why? @ -I reviewed and agree with nursing and triage notes Were old charts reviewed (outside hosp., previous admission, EMS record, old EKG, old radiological studies, urgent care reports/EKG's, [facility] records)? Report findings @ -EKG from primary care physician's office showed sinus bradycardia with a rate of 53 Differential Diagnosis (chest pain, altered mental status, abdominal pain women, abdominal pain men, vaginal bleeding, musculoskeletal, weakness, fever, dyspnea, syncope, headache, dizziness, GI bleed, back pain, seizure, CVA, palpatations, mental health)? @ -Differential Dyspnea: Coronary syndrome, arrhythmia, tamponade, asthma, COPD, pulmonary embolism, pneumonia, pneumothorax, pulmonary effusion, anaphylaxis, diabetic ketoacidosis, flailed chest, pulmonary contusion, diaphragmatic rupture, anemia, neuromuscular, this is not meant to be an all-inclusive list. EKG interpreted by me (3pts min.). @ -None done X-rays interpreted by me (1pt min.). @ -None done CT interpreted by me (1pt min.). @ -None done U/S interpreted by me (1pt. min.). @ -None done What testing was considered but not performed or refused? (CT, X-rays, U/S, labs)? Why? @ -None What meds were considered but not given or refused? Why? @ -None Did you discuss the management of the patient with other professionals (professionals i.e. , PA, COMMERCIAL TRAILER TRUCK DRIVER, lab, RT, psych nurse, bilingual social worker, care associate, teacher, collection officer, machine adjuster leader case trim)? Give summary @ -No Was smoking cessation discussed for >3mins.? @ -No Was critical care preformed (if so, how long)? @ -No Were there social determinants of health that impacted care today? How? (Homelessness, low income, unemployed, alcoholism, drug addiction, transportation, low edu. Level, literacy, decrease access to med. care, [facility], rehab)? @ -No Was there de-escalation of care discussed even if they declined (Discuss DNR or withdrawal of care, Hospice)? DNR status @ -No What co-morbidities impacted this encounter? (DM, HTN, Smoking, COPD, CAD, Cancer, CVA, ARF, Chemo, Hep., AIDS, mental health diagnosis, sleep apnea, morbid obesity)? @ -None Was patient admitted / discharged? Hospital course, mention meds given and route, prescriptions, significant lab abnormalities, going to OR and other [facility] [place] info. @ -72-year-old female presents to the emergency department for chronic dyspnea and weakness. Vital signs upon arrival are within acceptable limits. Patient well-appearing at the bedside. She has no acute complaints. EKG was reviewed from primary care physician's office she did not seem concerning. Repeat EKG here appear to be within acceptable limits. Labs are unremarkable. Troponin is negative. Disposition options were discussed with patient she was offered observation admission for cardiology evaluation. Patient refused and would rather sleep in her own bed and go home tonight call cardiology for Donald in the morning. Patient at this time has no high risk features. return precautions discussed. Patient told to pause her metoprolol until further instruction from cardiology or outpatient physicians. Undiagnosed new problem with uncertain prognosis? @ -No Drug Therapy requiring intensive monitoring for toxicity (Heparin, Nitro, Insulin, Cardizem)? @ -No Were any procedures done? @ -No Diagnosis/symptom? Acute, or Chronic, or Acute on Chronic? Uncomplicated (without systemic symptoms) or Complicated (systemic symptoms)? @ -Bradycardia Side effects of treatment? @ -No Exacerbation, Progression, or Severe Exacerbation? @ -No Poses a threat to life or bodily function? How? (Chest pain, [place], [place], pneumonia, PE, COPD, DKA, ARF, appy, cholecystitis, CVA, Diverticulitis, Homicidal, Suicidal, threat to staff... and all critical care pts) @ -No (Musa Parks) - Lab Data Lab Results 07/12/23 07/12/23 07/12/23 Range/Units 20:35 20:35 20:35 WBC 10.4 (3.8-10.6) k/uL RBC 4.22 (3.80-5.40) m/uL Hgb 14.8 (11.4-16.0) gm/dL Hct 43.3 (34.0-46.0) % MCV 102.6 H (80.0-100.0) fL MCH 34.9 (25.0-35.0) pg MCHC 34.0 (31.0-37.0) g/dL RDW 11.7 (11.5-15.5) % Plt Count 224 (150-450) k/uL MPV 7.3 Neutrophils % 75 % Lymphocytes % 19 % Monocytes % 3 % Eosinophils % 1 % Basophils % 0 % Neutrophils # 7.8 H (1.3-7.7) k/uL Lymphocytes # 2.0 (1.0-4.8) k/uL Monocytes # 0.3 (0-1.0) k/uL Eosinophils # 0.1 (0-0.7) k/uL Basophils # 0.0 (0-0.2) k/uL PT 10.1 (10.0-12.5) sec INR 0.9 (<1.2) APTT 24.0 (22.0-30.0) sec Sodium 131 L (137-145) mmol/L Potassium 4.6 (3.5-5.1) mmol/L Chloride 98 (98-107) mmol/L Carbon Dioxide 22 (22-30) mmol/L Anion Gap 11 mmol/L BUN 10 (7-17) mg/dL Creatinine 0.62 (0.52-1.04) mg/dL Est GFR (CKD-EPI)AfAm >90 (>60 ml/min/1.73 sqM) Est GFR (CKD-EPI)NonAf >90 (>60 ml/min/1.73 sqM) Glucose 103 H (74-99) mg/dL Calcium 9.2 (8.4-10.2) mg/dL Total Bilirubin 0.6 (0.2-1.3) mg/dL AST 27 (14-36) U/L ALT 20 (4-34) U/L Alkaline Phosphatase 80 (38-126) U/L Troponin I (0.000-0.034) ng/mL Total Protein 7.9 (6.3-8.2) g/dL Albumin 4.9 (3.5-5.0) g/dL 07/12/23 Range/Units 20:35 WBC (3.8-10.6) k/uL RBC (3.80-5.40) m/uL Hgb (11.4-16.0) gm/dL Hct (34.0-46.0) % MCV (80.0-100.0) fL MCH (25.0-35.0) pg MCHC (31.0-37.0) g/dL RDW (11.5-15.5) % Plt Count (150-450) k/uL MPV Neutrophils % % Lymphocytes % % Monocytes % % Eosinophils % % Basophils % % Neutrophils # (1.3-7.7) k/uL Lymphocytes # (1.0-4.8) k/uL Monocytes # (0-1.0) k/uL Eosinophils # (0-0.7) k/uL Basophils # (0-0.2) k/uL PT (10.0-12.5) sec INR (<1.2) APTT (22.0-30.0) sec Sodium (137-145) mmol/L Potassium (3.5-5.1) mmol/L Chloride (98-107) mmol/L Carbon Dioxide (22-30) mmol/L Anion Gap mmol/L BUN (7-17) mg/dL Creatinine (0.52-1.04) mg/dL Est GFR (CKD-EPI)AfAm (>60 ml/min/1.73 sqM) Est GFR (CKD-EPI)NonAf (>60 ml/min/1.73 sqM) Glucose (74-99) mg/dL Calcium (8.4-10.2) mg/dL Total Bilirubin (0.2-1.3) mg/dL AST (14-36) U/L ALT (4-34) U/L Alkaline Phosphatase (38-126) U/L Troponin I <0.012 (0.000-0.034) ng/mL Total Protein (6.3-8.2) g/dL Albumin (3.5-5.0) g/dL Disposition <Brandy Barton - Last Filed: 07/12/23 21:04> Is patient prescribed a controlled substance at d/c from ED?: No Time of Disposition: 21:30 <Musa Parks - Last Filed: 07/12/23 21:30> Clinical Impression: Bradycardia Disposition: HOME SELF-CARE Condition: Good Instructions (If sedation given, give patient instructions): Metoprolol (By mouth) Referrals: Jamila Goldsmith [Primary Care Provider] - 1-2 days
[2023-07-12 21:13] LABS: INR 0.9 (<1.2); Prothrombin Time 10.1 sec (10.0-12.5)
--- NOTE | 2023-07-12 21:58 | ED ---
Medical Decision Making - Medical Decision Making Dictation was produced using [employer] dictation software. please excuse any grammatical, word or spelling errors. Chief Complaint: 72-year-old female presents emergency department for fall History of Present Illness: Patient 72-year-old female she presents emergency department after fall. She made dinner. She does not usually drink alcohol had 5 beers today. She went to the bathroom to urinate. She stood up abruptly and fell. Patient [place] any trip. Denies any cardiac disease. States that she does not drink usually. She called a friend because she could not get up. Friend helped her and brought her to the emergency department. Patient states she feels weak. She lives at home by herself. The ROS documented in this emergency department record has been reviewed and confirmed by me. Those systems with pertinent positive or negative responses have been documented in the HPI. All other systems are other negative and/or noncontributory. PHYSICAL EXAM: General Impression: Alert and oriented x3, not in acute distress HEENT: Normocephalic atraumatic, extra-ocular movements intact, pupils equal and reactive to light bilaterally, mucous membranes moist. Cardiovascular: Heart regular rate and rhythm Chest: Able to complete full sentences, no retractions, no tachypnea Abdomen: abdomen soft, non-tender, non-distended, no organomegaly Musculoskeletal: Pulses present and equal in all extremities, no peripheral edema Motor: no focal deficits noted Neurological: CN II-XII grossly intact, no focal motor or sensory deficits noted Skin: Intact with no visualized rashes Psych: Normal affect and mood Was pt. sent in by a medical professional or institution (Dr. PA, HEARING OFFICER, urgent care, hospital, or halfway...) When possible be specific @ -No Did you speak to anyone other than the patient for history (EMS, parent, family, police, friend...)? What history was obtained from this source @ -No Did you review nursing and triage notes (agree or disagree)? Why? @ -I reviewed and agree with nursing and triage notes Were old charts reviewed (outside hosp., previous admission, EMS record, old EKG, old radiological studies, urgent care reports/EKG's, halfway records)? Report findings @ -No old charts were reviewed Differential Diagnosis (chest pain, altered mental status, abdominal pain women, abdominal pain men, vaginal bleeding, musculoskeletal, weakness, fever, dyspnea, syncope, headache, dizziness, GI bleed, back pain, seizure, CVA, palpatations, mental health)? @ -Differential Syncope: Valvular disease, hypertrophic cardiomyopathy, pulmonary embolism, tamponade, tachycardia, bradycardia, RI, hypovolemia, hemorrhage, dissection, anemia, intracranial hemorrhage, seizure, hypoglycemia, carbon monoxide poisoning, this is not meant to be an all-inclusive list. EKG interpreted by me (3pts min.). @ -My EKG interpretation: Ventricular rate 60, sinus rhythm,. 188, QRS 120, QTc 444. No MD prolongation, no QTC prolongation, no ST or T-wave changes noted. EKG compared to January 18, 2020 showing no changes. Overall, this EKG is unremarkable X-rays interpreted by me (1pt min.). @ -None done CT interpreted by me (1pt min.). @ -CT scan of the head and C-spine shows no acute processes U/S interpreted by me (1pt. min.). @ -None done What testing was considered but not performed or refused? (CT, X-rays, U/S, labs)? Why? @ -None What meds were considered but not given or refused? Why? @ -None Did you discuss the management of the patient with other professionals (professionals i.e. , PA, HEARING OFFICER, lab, RT, psych nurse, social services, tool drawing checker, teacher, strike operations officer, trimming caser)? Give summary @ -No Was smoking cessation discussed for >3mins.? @ -No Was critical care preformed (if so, how long)? @ -No Were there social determinants of health that impacted care today? How? (Homelessness, low income, unemployed, alcoholism, drug addiction, transportation, low edu. Level, literacy, decrease access to med. care, correction, rehab)? @ -No Was there de-escalation of care discussed even if they declined (Discuss DNR or withdrawal of care, Hospice)? DNR status @ -No What co-morbidities impacted this encounter? (DM, HTN, Smoking, COPD, CAD, Cancer, CVA, ARF, Chemo, Hep., AIDS, mental health diagnosis, sleep apnea, morbid obesity)? @ -None Was patient admitted / discharged? Hospital course, mention meds given and route, prescriptions, significant lab abnormalities, going to OR and other flore[facility] jarvis info. @ -9-year-old female presents emergency department after alleged syncopal episode. She consumed several alcoholic beverages today and states that she normally does not drink. Vital signs upon arrival are within acceptable limits. Patient coherent at the bedside examination is benign. Laboratory evaluation obtained. No acidosis. Little hyponatremia likely secondary to some beer [place]. Otherwise labs are within acceptable limits. EKG does not suggest cardiac syncope. Patient denies any cardiac disease. Observed emergency department. Given IV fluids. Patient be discharged home. Undiagnosed new problem with uncertain prognosis? @ -No Drug Therapy requiring intensive monitoring for toxicity (Heparin, Nitro, Insulin, Cardizem)? @ -No Were any procedures done? @ -No Diagnosis/symptom? Acute, or Chronic, or Acute on Chronic? Uncomplicated (without systemic symptoms) or Complicated (systemic symptoms)? @ -Syncope Side effects of treatment? @ -No Exacerbation, Progression, or Severe Exacerbation? @ -No Poses a threat to life or bodily function? How? (Chest pain, USA, RI, pneumonia, PE, COPD, DKA, ARF, appy, cholecystitis, CVA, Diverticulitis, Homicidal, S uicidal, threat to staff... and all critical care pts) @ -No - Lab Data Result diagrams: 07/12/23 20:35 07/12/23 20:35 Lab Results 07/12/23 07/12/23 07/12/23 Range/Units 20:35 20:35 20:35 WBC 10.4 (3.8-10.6) k/uL RBC 4.22 (3.80-5.40) m/uL Hgb 14.8 (11.4-16.0) gm/dL Hct 43.3 (34.0-46.0) % MCV 102.6 H (80.0-100.0) fL MCH 34.9 (25.0-35.0) pg MCHC 34.0 (31.0-37.0) g/dL RDW 11.7 (11.5-15.5) % Plt Count 224 (150-450) k/uL MPV 7.3 Neutrophils % 75 % Lymphocytes % 19 % Monocytes % 3 % Eosinophils % 1 % Basophils % 0 % Neutrophils # 7.8 H (1.3-7.7) k/uL Lymphocytes # 2.0 (1.0-4.8) k/uL Monocytes # 0.3 (0-1.0) k/uL Eosinophils # 0.1 (0-0.7) k/uL Basophils # 0.0 (0-0.2) k/uL PT 10.1 (10.0-12.5) sec INR 0.9 (<1.2) APTT 24.0 (22.0-30.0) sec Sodium 131 L (137-145) mmol/L Potassium 4.6 (3.5-5.1) mmol/L Chloride 98 (98-107) mmol/L Carbon Dioxide 22 (22-30) mmol/L Anion Gap 11 mmol/L BUN 10 (7-17) mg/dL Creatinine 0.62 (0.52-1.04) mg/dL Est GFR (CKD-EPI)AfAm >90 (>60 ml/min/1.73 sqM) Est GFR (CKD-EPI)NonAf >90 (>60 ml/min/1.73 sqM) Glucose 103 H (74-99) mg/dL Calcium 9.2 (8.4-10.2) mg/dL Total Bilirubin 0.6 (0.2-1.3) mg/dL AST 27 (14-36) U/L ALT 20 (4-34) U/L Alkaline Phosphatase 80 (38-126) U/L Troponin I (0.000-0.034) ng/mL Total Protein 7.9 (6.3-8.2) g/dL Albumin 4.9 (3.5-5.0) g/dL 07/12/23 Range/Units 20:35 WBC (3.8-10.6) k/uL RBC (3.80-5.40) m/uL Hgb (11.4-16.0) gm/dL Hct (34.0-46.0) % MCV (80.0-100.0) fL MCH (25.0-35.0) pg MCHC (31.0-37.0) g/dL RDW (11.5-15.5) % Plt Count (150-450) k/uL MPV Neutrophils % % Lymphocytes % % Monocytes % % Eosinophils % % Basophils % % Neutrophils # (1.3-7.7) k/uL Lymphocytes # (1.0-4.8) k/uL Monocytes # (0-1.0) k/uL Eosinophils # (0-0.7) k/uL Basophils # (0-0.2) k/uL PT (10.0-12.5) sec INR (<1.2) APTT (22.0-30.0) sec Sodium (137-145) mmol/L Potassium (3.5-5.1) mmol/L Chloride (98-107) mmol/L Carbon Dioxide (22-30) mmol/L Anion Gap mmol/L BUN (7-17) mg/dL Creatinine (0.52-1.04) mg/dL Est GFR (CKD-EPI)AfAm (>60 ml/min/1.73 sqM) Est GFR (CKD-EPI)NonAf (>60 ml/min/1.73 sqM) Glucose (74-99) mg/dL Calcium (8.4-10.2) mg/dL Total Bilirubin (0.2-1.3) mg/dL AST (14-36) U/L ALT (4-34) U/L Alkaline Phosphatase (38-126) U/L Troponin I <0.012 (0.000-0.034) ng/mL Total Protein (6.3-8.2) g/dL Albumin (3.5-5.0) g/dL Disposition Clinical Impression: Fall Disposition: HOME SELF-CARE Condition: Good Instructions (If sedation given, give patient instructions): Fall Prevention for Older Adults (ED) Is patient prescribed a controlled substance at d/c from ED?: No Referrals: Jamila Goldsmith [Primary Care Provider] - 1-2 days Time of Disposition: 22:27
--- NOTE | 2023-07-12 22:09 | CT ---
EXAMINATION TYPE: CT brain cspine wo con CT DLP: 1310.6 mGycm, Automated exposure control for dose reduction was used. DATE OF EXAM: 07/12/2023 9:29 PM COMPARISON: CT head 01/18/2020 CLINICAL INDICATION:Female, 72 years old with history of fall, hit forehead, neck pain; fell today/ n marychuy pain TECHNIQUE: Brain: Multiple axial CT images of the brain were obtained without IV contrast. Cspine: Axial CT images from the skull base to the inferior aspect of T2 we obtained without intraven ous contrast. Coronal and sagittal reformatted images were also reviewed. FINDINGS: Brain: Extra-axial spaces: No abnormal extra-axial fluid collections. Ventricular system: Appear dilated in proportion to the degree of cerebral atrophy. Cerebral parenchyma: No increased attenuation to suggest acute intraparenchymal hemorrhage. The gra y-white matter interface appears maintained. Mild/moderate generalized brain atrophy. Scattered hyp oattenuating areas are seen within the cerebral white matter, nonspecific but most often seen with ch ronic microvascular ischemic changes; mild/moderate in degree. Cerebellum: No acute abnormality. Mass effect: No evidence of mass effect or midline shift. Intracranial vasculature: Atherosclerotic calcifications of the larger arteries near the skull base. Soft tissues: Asymmetric soft tissues likely small scalp hematoma over the right forehead. Visualized orbits: Orbital contents appear grossly intact. Calvarium/osseous structures: No evidence of calvarial fracture. Paranasal sinuses and mastoid air cells: Clear. MRI is more sensitive for detecting acute processes such as infarct, and may be considered if clinica lly warranted. Cervical spine: Fracture: None seen. Osseous structures, spinal canal/neural foramina: Generalized osteopenia. There is mild/moderate dege nerative change of the craniocervical junction and anterior C1-C2 articulation. Minimal retrodental s oft tissue density without significant canal narrowing suggested. There is otherwise moderate multile nelly degenerative disk disease and facet arthrosis throughout the cervical spine, appears most severe C3-C4 where there is moderate spinal canal and bilateral neuroforaminal stenoses, and at C5-C6 where mostly disc osteophyte complex causes moderate to severe spinal canal and bilateral neuroforaminal st enosis. Vertebral alignment: No traumatic malalignment. Mild degenerative retrolisthesis C3 on C4, anterolist hesis C4 on C5, and anterolisthesis C7 on T1. Neck soft tissues: No acute finding.. Calcifications noted involving the cervical carotid arteries mo stly bifurcation regions. Possible small hypodense nodule of the right thyroid. Other: Moderate apical pulmonary emphysematous changes and mild scarring. No acute infiltrate or pneu mothorax. IMPRESSION: CT head: 1. Small scalp hematoma suggested over the right forehead. 2. No evidence of skull fracture or acute intracranial hemorrhage. 3. Mild/moderate atrophy and chronic microvascular ischemic changes. CT cervical spine: 1. No evidence of acute cervical spine fracture or traumatic malalignment. 2. Moderate cervical spondylosis, most severe C5-C6.
[2023-07-12 23:02] VITALS: BP 111/68; PULSE 68; TEMP 98.1
== END 2023-07-12 22:49 | disposition home or self-care (01) ==
LOC: EC 20:17
DX: R00.1 Bradycardia, unspecified (principal); F17.200 Nicotine dependence, unspecified, uncomplicated; Z88.5 Allergy status to narcotic agent; Z91.030 Bee allergy status; Z88.8 Allergy status to other drugs, medicaments and biological substances
CPT/HCPCS: 36415; 70450; 72125; 80053; 84484; 85025; 85610; 85730; 93005; 99285